=== PATIENT | male | born 1940 | race Caucasian/White ===

== ENCOUNTER 2021-01-21 10:40 | Emergency (ER) | payer OTHER ==
[2021-01-21] MEDS ORDERED: NA CHLORIDE 0.9% 500 ML ONE (11:32)
[2021-01-21] MEDS ORDERED: ONDANSETRON 4 MG/2 ML VIAL ONE (11:32)
[2021-01-21 11:33] LABS: Urine Blood 2+ (Negative); Urine Glucose Negative (Negative); Urine Protein Negative (Negative); Urine Specific Gravity 1.025 (1.005-1.030); Urine pH 5.5 (5.0-7.0)
[2021-01-21 11:33] LABS: Absolute Lymphocytes (CBC) 1.2 K/uL (0.7-4.9); Basophils % 0.5 % (0-1.3); Hematocrit 41.4 % (39.6-49.0); Lymphocytes % 16.3 % (15.3-44.8); MPV 7.9 fL (7.6-11.3); RBC Red Blood Cell Count 4.61 M/uL (4.33-5.43)
[2021-01-21 12:37] LABS: Urine Bacteria <20 /HPF (NONE SEEN)
[2021-01-21 12:38] LABS: Albumin 3.5 g/dL (3.4-5.0); Bilirubin Direct 0.2 mg/dL (0-0.2); Bilirubin Total 0.6 mg/dL (0.2-1.0); Potassium 4.1 mmol/L (3.5-5.1); Protein, Total 7.3 g/dL (6.4-8.2)
--- NOTE | 2021-01-21 13:00 | RAD REPORT ---
EXAM DESCRIPTION: CT - Abdomen Pelvis Wo Contrast - 01/21/2021 12:44 pm CLINICAL HISTORY: Abdominal pain COMPARISON: 2016 TECHNIQUE: Computed axial tomography of the abdomen and pelvis was obtained. IV and oral contrast we re not requested. All CT scans are performed using dose optimization technique as appropriate and may include automated exposure control or mA/KV adjustment according to patient size. FINDINGS: The evaluation of solid organs, vessels and bowel is limited secondary to the lack of con trast administration. 2.1 centimeter hepatic cyst. Cholecystectomy. Spleen, pancreas and adrenals appear grossly normal. 3 centimeter low-density mass left kidney probably a cyst. Right kidney grossly normal. 4.8 centimeter diverticulum stems from the third portion of the duodenum. Normal appendix Diverticula stem from the colon. Mild to moderate stranding adjacent to the sigmoid. No free air. No abscess Prostate gland is mildly to moderately enlarged. Small bilateral inguinal hernias. Small bladder dive rticulum suspected Small hiatal hernia IMPRESSION: Mild to moderate sigmoid diverticulitis
[2021-01-21] MEDS ORDERED: METRONIDAZOLE 500mg IVPB 500 MG/100 ML BAG IV ONE (13:32)
[2021-01-21] MEDS ORDERED: CIPROFLOXACIN 400mg IV 400 MG/200 ML BAG IV ONE (13:32)
--- NOTE | 2021-01-21 13:53 | ER ---
Nurse's Notes [facility] Name: Herson Kay Age: 80 yrs Sex: Male : 1940 Arrival Date: 01/21/2021 Time: 10:42 Bed 10 Private MD: Diagnosis: Diverticulitis of large intestine without perforation or abscess without bleeding Presentation: 01/21 10:48 Chief complaint: Patient states: Lower abd pain with constipation for 3-4 days. Sent by [facility] Dr. Stevens for further eval. Coronavirus screen: Client denies travel out of the [place] in the last 14 days. At this time, the client does not indicate any symptoms associated with coronavirus-19. Ebola Screen: Patient denies travel to an Ebola-affected area in the 21 days before illness onset. Initial Sepsis Screen: Does the patient meet any 2 criteria? No. Patient's initial sepsis screen is negative. Does the patient have a suspected source of infection? Yes: Acute abdominal pain. Risk Assessment: Do you want to hurt yourself or someone else? Patient reports no desire to harm self or others. Onset of symptoms was January 18, 2021. 10:48 Method Of Arrival: Ambulatory [facility] 10:48 Acuity: MICHAEL 3 ll1 Historical: - Allergies: 10:49 PENICILLINS; ll1 10:49 Iodinated Contrast Media - IV Dye; ll1 - PMHx: 10:49 GERD; Hyperlipidemia; Hypertension; Pancreatitis; ll1 - PSHx: 10:49 Cholecystectomy; ll1 - Immunization history:: Client reports receiving the 2nd dose of the Covid vaccine. - Social history:: Smoking status: Patient denies any tobacco usage or history of. - Family history:: not pertinent. - Hospitalizations: : No recent hospitalization is reported. Screenin:26 Abuse screen: Denies threats or abuse. Nutritional screening: No deficits noted. vg1 Tuberculosis screening: No symptoms or risk factors identified. Fall Risk No fall in past 12 months (0 pts). No secondary diagnosis (0 pts). IV access (20 points). Ambulatory Aid- Gait- Normal/Bed Rest/Wheelchair (0 pts) Mental Status- Oriented to own ability (0 pts). Total Robbins Fall Scale indicates No Risk (0-24 pts). Assessment: 11:10 General: Appears in no apparent distress. comfortable, Behavior is calm, cooperative. vg1 Pain: Complains of pain in right lower quadrant and left lower quadrant Pain currently is 4 out of 10 on a pain scale. Pain began 2-3 days ago. Neuro: Level of Consciousness is awake, alert, obeys commands, Oriented to person, place, time, situation. Cardiovascular: Patient's skin is warm and dry. Respiratory: Airway is patent Respiratory effort is even, unlabored. GI: Bowel sounds present X 4 quads. Abd is soft and non tender Reports constipation, BM this morning, states was 'hard' Patient currently denies diarrhea, nausea, vomiting. : No signs and/or symptoms were reported regarding the genitourinary system. EENT: No signs and/or symptoms were reported regarding the EENT system. Derm: Skin is intact, is healthy with good turgor. Musculoskeletal: Circulation, motion, and sensation intact. 12:20 Reassessment: Patient appears in no apparent distress at this time. No changes from vg1 previously documented assessment. Patient and/or family updated on plan of care and expected duration. Pain level reassessed. Patient is alert, oriented x 3, equal unlabored respirations, skin warm/dry/pink. 13:04 Reassessment: Patient appears in no apparent distress at this time. Patient and/or vg1 family updated on plan of care and expected duration. Pain level reassessed. Patient is alert, oriented x 3, equal unlabored respirations, skin warm/dry/pink. Patient states feeling better. 13:50 Reassessment: Patient appears in no apparent distress at this time. Patient and/or vg1 family updated on plan of care and expected duration. Pain level reassessed. Patient is alert, oriented x 3, equal unlabored respirations, skin warm/dry/pink. 13:53 Reassessment: Pt up for d/c, currently waiting for IV antibiotics to complete. vg1 14:57 Reassessment: Patient appears in no apparent distress at this time. Patient and/or vg1 family updated on plan of care and expected duration. Pain level reassessed. Patient is alert, oriented x 3, equal unlabored respirations, skin warm/dry/pink. Patient states feeling better. Vital Signs: 10:48 BP 127 / 77; Pulse 75; Resp 17; Temp 97.5; Pulse Ox 96% ; Weight 77.11 kg; Height 5 ft. ll1 5 in. (165.10 cm); Pain 4/10; 12:20 BP 110 / 71; Pulse 65; Resp 16; Pulse Ox 100% ; vg1 13:04 BP 120 / 73; Pulse 65; Resp 16; Pulse Ox 100% ; vg1 13:50 BP 118 / 67; Pulse 64; Resp 16; Pulse Ox 100% ; vg1 14:57 BP 113 / 70; Pulse 62; Resp 16; Pulse Ox 100% ; vg1 10:48 Body Mass Index 28.29 (77.11 kg, 165.10 cm) ll1 ED Course: 10:42 Patient arrived in ED. rg4 10:47 Martell Nguyen MD is Attending Physician. rn 10:49 Triage completed. ll1 10:50 Vani Pina RN is Primary Nurse. vg1 10:50 Arm band placed on Patient placed. ll1 11:23 Initial lab(s) drawn, by [facility], sent to lab. Inserted saline lock: 20 gauge in right vg1 wrist, using aseptic technique. Blood collected. 11:26 Patient has correct armband on for positive identification. Bed in low position. Call vg1 light in reach. Side rails up X 1. Adult w/ patient. 11:26 No provider procedures requiring assistance completed. vg1 12:43 Abdomen In Process Unspecified. EDMS 14:56 IV discontinued, intact, bleeding controlled, No redness/swelling at site. Pressure vg1 dressing applied. Administered Medications: 11:18 Drug: Zofran (Ondansetron) 4 mg Route: IVP; Site: right wrist; vg1 12:20 Follow up: Response: No adverse reaction vg1 11:18 Drug: NS 0.9% 500 ml Route: IV; Rate: bolus; Site: right wrist; vg1 12:19 Follow up: IV Status: Completed infusion; IV Intake: 500ml vg1 13:13 Drug: Flagyl (metroNIDAZOLE) 500 mg Volume: 100 ml; Route: IVPB; Rate: 200 ml/hr; vg1 Infused Over: 30 mins; Site: right wrist; 13:49 Follow up: IV Status: Completed infusion; IV Intake: 100ml vg1 13:50 Drug: Cipro (ciprofloxacin) 400 mg Volume: 200 ml; Route: IVPB; Infused Over: 60 mins; vg1 Site: right wrist; 14:56 Follow up: IV Status: Completed infusion; IV Intake: 200ml vg1 Intake: 12:19 IV: 500ml; Total: 500ml. vg1 13:49 IV: 100ml; Total: 600ml. vg1 14:56 IV: 200ml; Total: 800ml. vg1 Outcome: 13:52 Discharge ordered by . rn 14:56 Discharged to home ambulatory, with family. vg1 14:56 Condition: stable 14:56 Discharge instructions given to patient, family, Instructed on discharge instructions, follow up and referral plans. medication usage, Demonstrated understanding of instructions, follow-up care, medications, Prescriptions given X 4. 14:57 Patient left the ED. vg1 Signatures: Dispatcher [employer] EDMS Martell Nguyen MD MD rn Garcia, Rubi rg4 Vani Pina RN RN vg1 Solomon Mccartney RN RN ll1
--- NOTE | 2021-01-21 13:53 | EDPHYS ---
Physician Documentation [facility] Name: Herson Kay Age: 80 yrs Sex: Male : 1940 Arrival Date: 01/21/2021 Time: 10:42 Bed 10 Private MD: ED Physician Martell Nguyen HPI: 01/21 11:10 This 80 yrs old Male presents to ER via Ambulatory with complaints of rn Abdominal Pain. 11:10 The patient presents with abdominal pain in the left lower quadrant. Onset: The rn symptoms/episode began/occurred 2 day(s) ago. The symptoms do not radiate. Associated signs and symptoms: Pertinent positives: constipation, Pertinent negatives: blood in stools, fever. The symptoms are described as achy, crampy. Modifying factors: The symptoms are alleviated by nothing, the symptoms are aggravated by touching the area. Severity of pain: At its worst the pain was mild in the emergency department the pain is unchanged. The patient has not experienced similar symptoms in the past. The patient has not recently seen a physician. Patient reports left lower quadrant abdominal pain that began 2 days ago, initially felt like was getting better but then worse again today. Decreased appetite. Positive for constipation. No blood in stool or dark stool. Historical: - Allergies: 10:49 PENICILLINS; ll1 10:49 Iodinated Contrast Media - IV Dye; ll1 - PMHx: 10:49 GERD; Hyperlipidemia; Hypertension; Pancreatitis; ll1 - PSHx: 10:49 Cholecystectomy; ll1 - Immunization history:: Client reports receiving the 2nd dose of the Covid vaccine. - Social history:: Smoking status: Patient denies any tobacco usage or history of. - Family history:: not pertinent. - Hospitalizations: : No recent hospitalization is reported. ROS: 11:10 Constitutional: Negative for fever, chills, and weight loss, Eyes: Negative for injury, rn pain, redness, and discharge, Neck: Negative for injury, pain, and swelling, Cardiovascular: Negative for chest pain, palpitations, and edema, Respiratory: Negative for shortness of breath, cough, wheezing, and pleuritic chest pain, Abdomen/GI: Positive for left lower quadrant abdominal pain and anorexia as well as constipation : Negative for injury, bleeding, discharge, and swelling, MS/Extremity: Negative for injury and deformity, Skin: Negative for injury, rash, and discoloration, Neuro: Negative for headache, weakness, numbness, tingling, and seizure. 11:10 All other systems are negative. Exam: 11:10 Constitutional: This is a well developed, well nourished patient who is awake, alert, rn and in no acute distress. Head/Face: Normocephalic, atraumatic. Eyes: Periorbital areas with no swelling, redness, or edema. Cardiovascular: Regular rate and rhythm. No pulse deficits. Respiratory: No increased work of breathing, no retractions or nasal flaring. Abdomen/GI: Soft, mild left lower quadrant tenderness without peritoneal signs, no masses Skin: Warm, dry MS/ Extremity: Pulses equal, no cyanosis. Neuro: Awake and alert, GCS 15 Vital Signs: 10:48 BP 127 / 77; Pulse 75; Resp 17; Temp 97.5; Pulse Ox 96% ; Weight 77.11 kg; Height 5 ft. ll1 5 in. (165.10 cm); Pain 4/10; 12:20 BP 110 / 71; Pulse 65; Resp 16; Pulse Ox 100% ; vg1 13:04 BP 120 / 73; Pulse 65; Resp 16; Pulse Ox 100% ; vg1 13:50 BP 118 / 67; Pulse 64; Resp 16; Pulse Ox 100% ; vg1 14:57 BP 113 / 70; Pulse 62; Resp 16; Pulse Ox 100% ; vg1 10:48 Body Mass Index 28.29 (77.11 kg, 165.10 cm) ll1 MDM: 10:53 Patient medically screened. rn 13:51 Differential diagnosis: appendicitis, bowel obstruction, diverticulitis, non-specific rn abd pain, Ureterolithiasis, urinary tract infection. Data reviewed: vital signs, nurses notes, lab test result(s), radiologic studies, CT scan, and as a result, I will discharge patient. Data interpreted: site monitor: rate is 64 beats/min, rhythm is normal sinus rhythm, regular, with no ectopy, Interpretation: normal rate, normal rhythm, Pulse oximetry: on room air is 100 %. Interpretation: normal. Counseling: I had a detailed discussion with the patient and/or guardian regarding: the historical points, exam findings, and any diagnostic results supporting the discharge/admit diagnosis, lab results, radiology results, the need for outpatient follow up, to return to the emergency department if symptoms worsen or persist or if there are any questions or concerns that arise at home. Response to treatment: the patient's symptoms have markedly improved after treatment, Reclined in bed with legs crossed and looks very comfortable, and as a result, I will discharge patient. Special discussion: Based on the patient's Hx, exam, and Dx evaluation, there is no indication for emergent surgery or inpatient Tx. It is understood by the patient/guardian that if the Sx's persist or worsen they need to return immediately for re-evaluation. I discussed with the patient/guardian in detail that at this point there is no indication for admission to the hospital. It is understood, however, that if the symptoms persist or worsen the patient needs to return immediately for re-evaluation. Based on the history and exam findings, there is no indication for further emergent testing or inpatient evaluation. I discussed with the patient/guardian the need to see the primary care provider for further evaluation of the symptoms. ED course: CT shows mild to moderate diverticulitis. Patient with normal vitals and well-appearing. Given IV antibiotics here. Will DC home with antibiotics and return precautions given and understood. Patient happy that he is going home.. 01/21 10:58 Order name: Basic Metabolic Panel; Complete Time: 13:03 rn 01/21 10:58 Order name: CBC with Diff; Complete Time: 12:38 rn 01/21 10:58 Order name: Hepatic Function; Complete Time: 13:03 rn 01/21 10:58 Order name: Lipase; Complete Time: 13:03 rn 01/21 10:58 Order name: Urine Microscopic Only; Complete Time: 13:03 rn 01/21 11:33 Order name: Urine Dipstick-Ancillary; Complete Time: 12:38 EDME 01/21 10:58 Order name: IV Saline Lock; Complete Time: 11:23 rn 01/21 10:58 Order name: Labs collected and sent; Complete Time: 11:23 rn 01/21 12:42 Order name: Abdomen ; Complete Time: 13:03 EDMS 01/21 10:58 Order name: Urine Dipstick-Ancillary (obtain specimen); Complete Time: 11:33 rn Administered Medications: 11:18 Drug: Zofran (Ondansetron) 4 mg Route: IVP; Site: right wrist; vg1 12:20 Follow up: Response: No adverse reaction vg1 11:18 Drug: NS 0.9% 500 ml Route: IV; Rate: bolus; Site: right wrist; vg1 12:19 Follow up: IV Status: Completed infusion; IV Intake: 500ml vg1 13:13 Drug: Flagyl (metroNIDAZOLE) 500 mg Volume: 100 ml; Route: IVPB; Rate: 200 ml/hr; vg1 Infused Over: 30 mins; Site: right wrist; 13:49 Follow up: IV Status: Completed infusion; IV Intake: 100ml vg1 13:50 Drug: Cipro (ciprofloxacin) 400 mg Volume: 200 ml; Route: IVPB; Infused Over: 60 mins; vg1 Site: right wrist; 14:56 Follow up: IV Status: Completed infusion; IV Intake: 200ml vg1 Disposition Summary: 01/21/21 13:52 Discharge Ordered Location: Home rn Problem: new rn Symptoms: have improved rn Condition: Stable rn Diagnosis - Diverticulitis of large intestine without perforation or abscess without bleeding rn Followup: rn - With: Private Physician - When: 2 - 3 days - Reason: Recheck today's complaints, Re-evaluation by your physician Discharge Instructions: - Discharge Summary Sheet rn - High-Fiber Diet rn - Diverticulitis rn Forms: - Medication Reconciliation Form rn - Thank You Letter rn - Antibiotic international representative - Prescription Opioid Use rn Prescriptions: - ondansetron 4 mg Oral tablet,disintegrating - take 1 tablet by ORAL route every 8 hours As needed; 20 tablet; Refills: 0, rn Product Selection Permitted - Flagyl 500 mg Oral Tablet - take 1 tablet by ORAL route every 8 hours for 10 days; 30 tablet; Refills: 0, rn Product Selection Permitted - Cipro 500 mg Oral Tablet - take 1 tablet by ORAL route every 12 hours for 7 days; 14 tablet; Refills: 0, rn Product Selection Permitted - Tramadol 50 mg Oral Tablet - take 1 tablet by ORAL route every 8 hours as needed; 15 tablet; Refills: 0, rn Product Selection Permitted Signatures: Dispatcher [employer] EDMS Martell Nguyen MD MD rn Garcia, Victoria RN RN vg1 Sloomon Mccartney RN RN ll1 Corrections: (The following items were deleted from the chart) 12:42 10:59 Abdomen Pelvis W [id number] ordered. EDMS EDMS
[2021-01-21 15:12] VITALS: TEMP 97.5
[2021-01-21 15:14] VITALS: O2SAT 100
[2021-01-21 15:18] VITALS: BP 113/70
== END 2021-01-21 14:57 | disposition home or self-care (01) ==
LOC: ER 10:40
DX: K57.32 Diverticulitis of large intestine without perforation or abscess without bleeding (principal); I10 Essential (primary) hypertension; Z88.0 Allergy status to penicillin; Z91.041 Radiographic dye allergy status
CPT/HCPCS: 96365; 96367; 96361; 85025; 80048; 36415; 80076; 83690; 74176; 96375; 99284; J7040; J2405; J0744; 81003; 81015

== ENCOUNTER 2021-01-26 06:31 | Emergency (ER) | payer OTHER ==
[2021-01-26 07:42] LABS: Urine Blood 1+ (Negative); Urine Glucose Negative (Negative); Urine Protein 1+ (Negative)
[2021-01-26] MEDS ORDERED: MORPHINE 2 MG/ML SYR ONE (07:54)
[2021-01-26] MEDS ORDERED: ONDANSETRON 4 MG/2 ML VIAL ONE (07:54)
[2021-01-26 08:12] LABS: Bilirubin Direct 0.1 mg/dL (0-0.2); Bilirubin Total 0.4 mg/dL (0.2-1.0); Potassium 3.7 mmol/L (3.5-5.1); Protein, Total 7.7 g/dL (6.4-8.2)
[2021-01-26 08:16] LABS: Absolute Lymphocytes (CBC) 0.8 K/uL (0.7-4.9); Basophils % 0.8 % (0-1.3); Hematocrit 45.8 % (39.6-49.0); Lymphocytes % 14.2 % (15.3-44.8); MPV 7.6 fL (7.6-11.3); RBC Red Blood Cell Count 5.11 M/uL (4.33-5.43)
--- NOTE | 2021-01-26 09:35 | RAD REPORT ---
EXAM DESCRIPTION: CTAbdomen Pelvis W Contrast - 01/26/2021 9:17 am CLINICAL HISTORY: abdominal pain COMPARISON: Abdomen Pelvis Wo Contrast dated 01/21/2021 TECHNIQUE: CT of the abdomen and pelvis was performed. All CT scans are performed using dose optimization technique as appropriate and may include automated exposure control or mA/KV adjustment according to patient size. FINDINGS: Lower chest: No acute abnormality. Small hiatal hernia. Liver: Multiple low-attenuation liver lesions are noted which are too small to characterize. There ar e statistically benign. Biliary: Cholecystectomy. Stomach: No significant focal abnormality. Duodenum: No significant focal abnormality. Pancreas: No significant abnormality. Spleen: No significant abnormality. Adrenal: No suspicious lesions. Kidney/ureter: No hydronephrosis. No renal calculi. Left renal cysts noted. Retroperitoneum: No retroperitoneal adenopathy. Vascular: No aneurysm. Bowel: Inflammatory changes along the sigmoid colon have improved though not completely resolved. Ext ensive diverticulosis. Normal appendix.. Peritoneum: No ascites or free air. Bladder: Small bladder diverticulum along the right aspect of the bladder. Reproductive: No adnexal masses. Bones: No acute fracture. Other: n/a IMPRESSION: Improving inflammatory changes at the sigmoid colon compared with 01/21/2021. No perfora tion or abscess. No new acute findings identified.
--- NOTE | 2021-01-26 09:58 | EDPHYS ---
Physician Documentation [facility] Name: Herson Kay Age: 80 yrs Sex: Male : 1940 Arrival Date: 01/26/2021 Time: 06:34 Bed 24 Private MD: Negro Baker HPI: 01/26 07:06 This 80 yrs old Male presents to ER via Ambulatory with complaints of jmm abdominal pain. 07:06 The patient presents with abdominal pain in the left lower quadrant. Onset: The jmm symptoms/episode began/occurred gradually. The symptoms do not radiate. Associated signs and symptoms: Pertinent positives: fever, nausea. The symptoms are described as achy. Modifying factors: The symptoms are alleviated by nothing, the symptoms are aggravated by nothing. The patient has experienced similar episodes in the past. This is a 80-year-old male with history of GERD, hyperlipidemia, hypertension, pancreatitis, diverticulitis that presents emerge department with complaints of progressively worsening left lower quadrant abdominal pain along with chills, weakness. Patient is currently taking oral antibiotics and was diagnosed with diverticulitis on January 21 of this month.. Historical: - Allergies: 06:46 Iodinated Contrast Media - IV Dye; df1 06:46 PENICILLINS; df1 - Home Meds: 06:46 amlodipine-benazepril 10-20 mg Oral cap 1 cap once daily for Hypertension [Active]; df1 pantoprazole 40 mg Oral TbEC 1 tab once daily for Gastroesophageal reflux [Active]; simvastatin 20 mg Oral tab 1 tab once daily for Hypercholesterolemia [Active]; aspirin 81 mg Oral tab 81 mg daily [Active]; - PMHx: 06:46 GERD; Hyperlipidemia; Hypertension; Pancreatitis; Diverticulitis; DVT left leg; df1 - PSHx: 06:46 Cholecystectomy; df1 - Immunization history:: Adult Immunizations up to date, Client reports having NOT received the Covid vaccine. - Social history:: Smoking status: Patient/guardian denies using tobacco. ROS: 07:06 Cardiovascular: Negative for chest pain, palpitations, and edema, Respiratory: Negative jmm for shortness of breath, cough, wheezing, and pleuritic chest pain. 07:06 Constitutional: Positive for body aches, chills. 07:06 Abdomen/GI: Positive for abdominal pain, nausea. 07:06 All other systems are negative. Exam: 07:06 Constitutional: This is a well developed, well nourished patient who is awake, alert, jmm and in no acute distress. Head/Face: atraumatic. Eyes: EOMI, no conjunctival erythema appreciated ENT: Moist Mucus Membranes Neck: Trachea midline, Supple Chest/axilla: Normal chest wall appearance and motion. Cardiovascular: Regular rate and rhythm. No edema appreciated Respiratory: Normal respirations, no respiratory distress appreciated Back: Normal ROM 07:06 Skin: General appearance color normal MS/ Extremity: Moves all extremities, no obvious deformities appreciated, no edema noted to the lower extremities Neuro: Awake and alert, normal gait Psych: Behavior is normal, Mood is normal, Patient is cooperative and pleasant 07:06 Abdomen/GI: Inspection: abdomen appears normal, Bowel sounds: normal, Palpation: soft, mild abdominal tenderness, in the left lower quadrant. Vital Signs: 06:42 BP 145 / 97; Pulse 90; Resp 18; Temp 98.3; Pulse Ox 100% on R/A; Weight 77.11 kg; df1 Height 5 ft. 5 in. (165.10 cm); Pain 0/10; 08:03 BP 136 / 83; Pulse 76; Resp 16; Pulse Ox 97% ; Pain 0/10; oh 09:19 BP 128 / 76; Pulse 64; Resp 15; Pulse Ox 94% ; Pain 0/10; oh 10:29 BP 133 / 84; Pulse 70; Resp 15; Pulse Ox 97% ; Pain 0/10; tc5 06:42 Body Mass Index 28.29 (77.11 kg, 165.10 cm) df1 MDM: 06:53 Patient medically screened. [facility] [place] 09:57 Data reviewed: vital signs, nurses notes. Counseling: I had a detailed discussion with jose the patient and/or guardian regarding: the historical points, exam findings, and any diagnostic results supporting the discharge/admit diagnosis, lab results, radiology results, the need for outpatient follow up, to return to the emergency department if symptoms worsen or persist or if there are any questions or concerns that arise at home. ED course: CT and labs pressure improvement. Patient is advised to switch to a clear liquid diet and begin to take probiotics along with his prescribed antibiotics. Patient otherwise given strict return precautions. Patient understood and agrees plan of care.. 01/26 07:05 Order name: Basic Metabolic Panel; Complete Time: 08:19 [facility] 01/26 07:05 Order name: CBC with Diff; Complete Time: 08:19 [facility] 01/26 07:05 Order name: Hepatic Function; Complete Time: 08:19 [facility] 01/26 07:05 Order name: Lipase; Complete Time: 08:19 [facility] 01/26 07:05 Order name: CT Abd/Pelvis - PO Contrast Only; Complete Time: 09:39 [facility] 01/26 07:41 Order name: Urine Dipstick-Ancillary; Complete Time: 07:58 [facility] 01/26 07:05 Order name: IV Saline Lock; Complete Time: 07:54 [facility] 01/26 07:05 Order name: Labs collected and sent; Complete Time: 07:54 [facility] 01/26 07:05 Order name: Urine Dipstick-Ancillary (obtain specimen); Complete Time: 07:37 [facility] Administered Medications: 07:45 Drug: Zofran (Ondansetron) 4 mg Route: IVP; Site: left forearm; oh 08:03 Follow up: Response: No adverse reaction oh 10:18 Follow up: Response: No adverse reaction tc5 08:04 Not Given (Patient Refused): morphine 2 mg IVP once; (PAIN>8) RASS on ADMN: Combtv4, oh Very Agttd3, Agttd2, Rstlss1, AlertClm0, Drwsy-1, LtSdtn-2, ModSdtn-3, DpSdtn-4, UnArsble-5 x2 Disposition: 01/27 06:34 Co-signature as Attending Physician, Negro Laureano MD I agree with the assessment and sweta plan of care. Disposition Summary: 01/26/21 09:58 Discharge Ordered Location: Home [facility] Condition: Stable [facility] Diagnosis - Diverticulitis [facility] Followup: [facility] - With: Private Physician - When: 2 - 3 days - Reason: Recheck today's complaints, Continuance of care, Re-evaluation by your physician Discharge Instructions: - Discharge Summary Sheet [facility] - Clear Liquid Diet, Adult jmm - Diverticulitis [facility] Forms: - Medication Reconciliation Form [facility] - Thank You Letter [facility] - Antibiotic Education [facility] - Prescription Opioid Use [facility] Prescriptions: - Pepcid 20 mg Oral Tablet - take 1 tablet by ORAL route every 12 hours for 10 days; 20 tablet; Refills: 0, jmm Product Selection Permitted Signatures: Dispatcher [employer] Negro Eaton MD MD cha Mickail, Joel, PA PA jmm Furlich, Dawn df1 Krysta Mckenzie, RN RN oh Kami Nova RN tc5
--- NOTE | 2021-01-26 09:58 | ER ---
Nurse's Notes [facility] Name: Herson Kay Age: 80 yrs Sex: Male : 1940 Arrival Date: 01/26/2021 Time: 06:34 Bed 24 Private MD: Diagnosis: Diverticulitis Presentation: 01/26 06:42 Chief complaint: Patient states: Pt states nausea and fever. Coronavirus screen: df1 Vaccine status: Patient reports receiving the 2nd dose of the covid vaccine. The client denies any previous COVID testing. Ebola Screen: Patient negative for fever greater than or equal to 101.5 degrees Fahrenheit, and additional compatible Ebola Virus Disease symptoms Patient denies exposure to infectious person. Patient denies travel to an Ebola-affected area in the 21 days before illness onset. Initial Sepsis Screen: Does the patient meet any 2 criteria? No. Patient's initial sepsis screen is negative. Does the patient have a suspected source of infection? No. Patient's initial sepsis screen is negative. Risk Assessment: Do you want to hurt yourself or someone else? Patient reports no desire to harm self or others. Note Pt seen in ER last week Dx with diverticulitis sent home with antibiotics. Pt states last night starting to feel nauseated nd fever. Denies V/D/pain. Onset of symptoms was January 25, 2021. 06:42 Method Of Arrival: Ambulatory df1 06:42 Acuity: MICHAEL 3 df1 Historical: - Allergies: 06:46 Iodinated Contrast Media - IV Dye; df1 06:46 PENICILLINS; df1 - Home Meds: 06:46 amlodipine-benazepril 10-20 mg Oral cap 1 cap once daily for Hypertension [Active]; df1 pantoprazole 40 mg Oral TbEC 1 tab once daily for Gastroesophageal reflux [Active]; simvastatin 20 mg Oral tab 1 tab once daily for Hypercholesterolemia [Active]; aspirin 81 mg Oral tab 81 mg daily [Active]; - PMHx: 06:46 GERD; Hyperlipidemia; Hypertension; Pancreatitis; Diverticulitis; DVT left leg; df1 - PSHx: 06:46 Cholecystectomy; df1 - Immunization history:: Adult Immunizations up to date, Client reports having NOT received the Covid vaccine. - Social history:: Smoking status: Patient/guardian denies using tobacco. Screenin:59 Abuse screen: Denies threats or abuse. Denies injuries from another. Nutritional oh screening: No deficits noted. Tuberculosis screening: No symptoms or risk factors identified. Fall Risk None identified. Assessment: 07:57 General: Appears uncomfortable, Behavior is calm, cooperative, appropriate for age. oh Pain: Denies pain. Neuro: No deficits noted. Cardiovascular: No deficits noted. Respiratory: No deficits noted. GI: Reports pt reports he just dont feel good, states he had diverticulitis last last week, denies pain at this time, reports nausea and just not feeling well. 08:02 General: 0720- pt drank all po contrast. 0745-pt refused morphine, states he dont have oh pain.. Vital Signs: 06:42 BP 145 / 97; Pulse 90; Resp 18; Temp 98.3; Pulse Ox 100% on R/A; Weight 77.11 kg; df1 Height 5 ft. 5 in. (165.10 cm); Pain 0/10; 08:03 BP 136 / 83; Pulse 76; Resp 16; Pulse Ox 97% ; Pain 0/10; oh 09:19 BP 128 / 76; Pulse 64; Resp 15; Pulse Ox 94% ; Pain 0/10; oh 10:29 BP 133 / 84; Pulse 70; Resp 15; Pulse Ox 97% ; Pain 0/10; tc5 06:42 Body Mass Index 28.29 (77.11 kg, 165.10 cm) df1 ED Course: 06:34 Patient arrived in ED. 06:37 Adi Craig PA is PHCP. [facility] 06:37 Negro Laureano MD is Attending Physician. [facility] 06:46 Triage completed. df1 07:22 Krysta Mckenzie, RN is Primary Nurse. oh 08:00 Inserted saline lock: 20 gauge in left forearm, using aseptic technique. Blood oh collected. 09:17 CT Abd/Pelvis - PO Contrast Only In Process Unspecified. EDMS 10:30 No provider procedures requiring assistance completed. IV discontinued, intact, tc5 bleeding controlled, No redness/swelling at site. Pressure dressing applied. 10:30 Arm band placed on right wrist. tc5 10:31 Patient has correct armband on for positive identification. tc5 Administered Medications: 07:45 Drug: Zofran (Ondansetron) 4 mg Route: IVP; Site: left forearm; oh 08:03 Follow up: Response: No adverse reaction oh 10:18 Follow up: Response: No adverse reaction tc5 08:04 Not Given (Patient Refused): morphine 2 mg IVP once; (PAIN>8) RASS on ADMN: Combtv4, oh Very Agttd3, Agttd2, Rstlss1, AlertClm0, Drwsy-1, LtSdtn-2, ModSdtn-3, DpSdtn-4, UnArsble-5 x2 Outcome: 09:58 Discharge ordered by MD. garcia 10:30 Discharged to home tc5 10:30 Condition: stable 10:30 Discharge instructions given to patient. 10:35 Patient left the ED. tc5 Signatures: Dispatcher [employer] EDMS Adi Craig PA PA jmm Marsh, Wendy wm Furlich, Dawn df1 Krysta Mckenzie, RN RN tx Kami Nova RN RN tc5
[2021-01-26 10:43] VITALS: TEMP 98.3
[2021-01-26 10:47] VITALS: BP 133/84; O2SAT 97
== END 2021-01-26 10:35 | disposition home or self-care (01) ==
LOC: ER 06:31
DX: K57.32 Diverticulitis of large intestine without perforation or abscess without bleeding (principal); I10 Essential (primary) hypertension; Z88.0 Allergy status to penicillin; Z91.041 Radiographic dye allergy status
CPT/HCPCS: 85025; 80048; 36415; 80076; 81003; 83690; 74177; J2405; J2270